=== PATIENT | male | born 1975 | race Caucasian/White ===

== ENCOUNTER 2017-02-18 21:06 | Emergency (ER) | payer MEDICAID ==
[~2017-02-18] VITALS: Ht 167.6 cm; Wt 93.4 kg
[2017-02-18 21:10] VITALS: BP 104/74
--- NOTE | 2017-02-19 02:16 | NUR ---
CALLED PT NAME X3 IN WR. PT STATES HE DOES NOT WANT TO BE SEEN BY MD AND WOULD RATHER SLEEP. RISK AND BENEFITS EXPLAINED X3. PT AWARE.
== END 2017-02-19 02:19 | disposition left against medical advice (07) ==
LOC: ER 21:07
DX: Z53.21 Procedure and treatment not carried out due to patient leaving prior to being seen by health care provider (principal)
CPT/HCPCS: A4606; Z7610

== ENCOUNTER 2023-12-09 21:44 | Emergency (ER) | payer MEDICAID ==
[~2023-12-09] VITALS: Ht 167.6 cm; Wt 93.4 kg
[2023-12-09 22:03] VITALS: BP 134/76; TEMP 98.1; O2SAT 98
[2023-12-09] MEDS ORDERED: ARIP15TA3 PO (22:25)
== END 2023-12-09 22:39 | disposition home or self-care (01) ==
LOC: ER 21:48
DX: R45.1 Restlessness and agitation (principal); Z76.0 Encounter for issue of repeat prescription; F20.9 Schizophrenia, unspecified; F17.200 Nicotine dependence, unspecified, uncomplicated; Z60.2 Problems related to living alone

== ENCOUNTER 2025-03-20 19:55 | Emergency (ER) | payer MEDICAID ==
[~2025-03-20] VITALS: Ht 167.6 cm; Wt 93.4 kg
[~2025-03-20 19:55] MED LIST: ARIP15TA3 PO
[2025-03-20] MEDS ORDERED: IBUPROFEN 600 MG TABLET ONE (21:03)
[2025-03-20] MEDS: IBUPROFEN 600 MG TABLET PO ONE (21:06)
[2025-03-20 21:31] VITALS: BP 168/97; TEMP 98.7; O2SAT 96
== END 2025-03-20 21:31 | disposition home or self-care (01) ==
LOC: ER 20:02
DX: M79.671 Pain in right foot (principal); M79.672 Pain in left foot; F17.200 Nicotine dependence, unspecified, uncomplicated; Z79.899 Other long term (current) drug therapy; Z60.2 Problems related to living alone
CPT/HCPCS: 73630-TC